=== PATIENT | female | born 1975 | race Caucasian/White ===

== ENCOUNTER 2017-09-14 19:24 | Emergency (ER) | payer OTHER | END 2017-09-14 21:29 | disposition home or self-care (01) | LOC: M ED 19:24 | DX: M54.5 Low back pain (principal); W01.0XXA Fall on same level from slipping, tripping and stumbling without subsequent striking against object, initial encounter; Y92.9 Unspecified place or not applicable; Y93.9 Activity, unspecified; Y99.0 Civilian activity done for income or pay; M51.37 Other intervertebral disc degeneration, lumbosacral region; Z91.018 Allergy to other foods; Z91.040 Latex allergy status; Z88.0 Allergy status to penicillin | CPT/HCPCS: 72131 ==

== ENCOUNTER 2017-11-26 07:39 | Emergency (ER) | payer OTHER ==
[2017-11-26] MEDS: CLINDAMYCIN 150 MG CAP PO (08:28)
== END 2017-11-26 08:28 | disposition home or self-care (01) ==
LOC: M ED 07:39
DX: H01.001 Unspecified blepharitis right upper eyelid (principal); Z88.0 Allergy status to penicillin; Z91.040 Latex allergy status; Z91.018 Allergy to other foods
CPT/HCPCS: 99282

== ENCOUNTER → 2018-04-23 | Outpatient (CLI) | payer OTHER | LOC: M WUC 10:30 | DX: S83.422A Sprain of lateral collateral ligament of left knee, initial encounter (principal); W18.30XA Fall on same level, unspecified, initial encounter; Y92.009 Unspecified place in unspecified non-institutional (private) residence as the place of occurrence of the external cause ==

== ENCOUNTER → 2019-09-08 | Outpatient (REF) | payer OTHER ==
[~2019-09-08] MED LIST: CLEO300C2 PO; CYCL10TA PO; IBUP-1022 PO
== END ==
LOC: M LAB REF 10:21
PROVIDERS: ATTEND Physician Assistant
DX: J02.9 Acute pharyngitis, unspecified (principal); M54.5 Low back pain

== ENCOUNTER 2021-05-10 23:58 | Emergency (ER) | payer OTHER ==
[~2021-05-10] VITALS: Ht 170.2 cm; Wt 109.3 kg
[~2021-05-10 23:58] MED LIST changes: +CYCL-707 PO; -CYCL10TA PO
[2021-05-11] VITALS: BP 150/91
[2021-05-11] MEDS ORDERED: DETR4CAP PO (00:51)
== END 2021-05-11 01:52 | disposition left against medical advice (07) ==
LOC: M ED 23:58
DX: Z53.21 Procedure and treatment not carried out due to patient leaving prior to being seen by health care provider (principal)

== ENCOUNTER → 2021-09-21 | Outpatient (REF) | payer OTHER ==
[~2021-09-21] MED LIST changes: +DETR4CAP PO
== END ==
LOC: M SFHCPLAZ 15:52
PROVIDERS: ATTEND Family Medicine
DX: Z53.9 Procedure and treatment not carried out, unspecified reason (principal); Z76.89 Persons encountering health services in other specified circumstances

== ENCOUNTER → 2021-09-22 | Outpatient (CLI) | payer OTHER ==
[2021-09-22 11:20] LABS: BASO % 0.6 % (0.0-1.0); EOS # 0.3 10^3/uL (0.0-0.5); EOS % 3.5 % (0.0-3.0); HEMATOCRIT 40.8 % (36.0-47.0); HEMOGLOBIN 13.9 g/dl (12.0-15.5); LYMPH # 2.2 10^3/uL (1.5-5.0); LYMPH % 31.5 % (24.0-44.0); MEAN CORPUSCULAR HEMOGLOBIN 30.1 pg (27.0-33.0); MEAN CORPUSCULAR HGB CONC 34.1 g/dl (32.0-36.5); MEAN CORPUSCULAR VOLUME 88.3 fl (80.0-96.0); MONO # 0.6 10^3/uL (0.0-0.8); MONO % 8.3 % (2.0-8.0); NEUTROPHILS # 3.9 10^3/uL (1.5-8.5); NEUTROPHILS % 55.1 % (36.0-66.0); PLATELET COUNT, AUTOMATED 308 10^3/uL (150-450); RED BLOOD COUNT 4.62 10^6/uL (4.00-5.40); WHITE BLOOD COUNT 7.1 10^3/uL (4.0-10.0)
[2021-09-22 11:43] LABS: HEMOGLOBIN A1c 5.1 %
[2021-09-22 11:54] LABS: BLOOD UREA NITROGEN 15 MG/DL (7-18); CALCIUM LEVEL 8.8 MG/DL (8.5-10.1); CARBON DIOXIDE LEVEL 27 MEQ/L (21-32); CHLORIDE LEVEL 105 MEQ/L (98-107); CHOLESTEROL LEVEL 245 MG/DL (<200); CHOLESTEROL RISK RATIO 3.769 (<5); CREATININE FOR GFR 0.79 MG/DL (0.55-1.30); FREE T4 0.83 NG/DL (0.76-1.46); GLOMERULAR FILTRATION RATE > 60.0 (>58); GLUCOSE, FASTING 107 MG/DL (70-100); HDL CHOLESTEROL 65 MG/DL (>40); LDL CHOLESTEROL 156 MG/DL (<100); NON-HDL-C 180 MG/DL; SODIUM LEVEL 139 MEQ/L (136-145); TRIGLYCERIDES LEVEL 121 MG/DL (<150)
== END ==
LOC: M PLALAB 07:39
PROVIDERS: ATTEND Student in an Organized Health Care Education/Training Program
DX: Z76.89 Persons encountering health services in other specified circumstances (principal)

== ENCOUNTER → 2021-11-19 | Outpatient (CLI) | payer OTHER | LOC: M WHC 11:03 | PROVIDERS: ATTEND Student in an Organized Health Care Education/Training Program | DX: Z12.31 Encounter for screening mammogram for malignant neoplasm of breast (principal) ==

== ENCOUNTER → 2022-03-07 | Outpatient (CLI) | payer OTHER | LOC: M SLEEP 20:00 | PROVIDERS: ATTEND Nurse Practitioner Family | DX: R06.83 Snoring (principal) ==

== ENCOUNTER → 2022-03-19 | Outpatient (REF) | payer OTHER | LOC: M SFHCPLAZ 08:57 | PROVIDERS: ATTEND Family Medicine | DX: Z53.9 Procedure and treatment not carried out, unspecified reason (principal) ==

== ENCOUNTER → 2022-03-19 | Outpatient (CLI) | payer OTHER ==
[2022-03-19 11:18] LABS: FREE T4 0.87 NG/DL (0.76-1.46); THYROID STIMULATING HORMONE 1.3 uIU/ML (0.358-3.740)
== END ==
LOC: M PLALAB 09:03
PROVIDERS: ATTEND Student in an Organized Health Care Education/Training Program
DX: E07.9 Disorder of thyroid, unspecified (principal)

== ENCOUNTER → 2022-05-13 | Outpatient (CLI) | payer OTHER | LOC: M PLALAB 07:28 | PROVIDERS: ATTEND Student in an Organized Health Care Education/Training Program | DX: R07.89 Other chest pain (principal) ==

== ENCOUNTER → 2022-06-15 | Outpatient (CLI) | payer OTHER | LOC: M CARPUL 09:37 | PROVIDERS: ATTEND Student in an Organized Health Care Education/Training Program | DX: R07.89 Other chest pain (principal) ==

== ENCOUNTER → 2022-07-15 | Outpatient (CLI) | payer OTHER ==
[2022-07-15 20:42] LABS: THYROID STIMULATING HORMONE 1.56 uIU/ML (0.358-3.740)
== END ==
LOC: M PLALAB 14:52
PROVIDERS: ATTEND Student in an Organized Health Care Education/Training Program
DX: Z13.29 Encounter for screening for other suspected endocrine disorder (principal)
CPT/HCPCS: 36415; 84439; 84443; G0463

== ENCOUNTER → 2022-08-26 | Outpatient (CLI) | payer OTHER ==
[2022-08-26 11:47] LABS: BASO % 0.1 % (0.0-1.0); EOS # 0.2 10^3/uL (0.0-0.5); EOS % 2.3 % (0.0-3.0); HEMATOCRIT 41.7 % (36.0-47.0); HEMOGLOBIN 13.6 g/dl (12.0-15.5); LYMPH % 29.4 % (24.0-44.0); MEAN CORPUSCULAR HEMOGLOBIN 29.2 pg (27.0-33.0); MEAN CORPUSCULAR HGB CONC 32.6 g/dl (32.0-36.5); MEAN CORPUSCULAR VOLUME 89.7 fl (80.0-96.0); MONO # 0.5 10^3/uL (0.0-0.8); MONO % 7.1 % (2.0-8.0); NEUTROPHILS # 4.1 10^3/uL (1.5-8.5); NEUTROPHILS % 60.4 % (36.0-66.0); PLATELET COUNT, AUTOMATED 303 10^3/uL (150-450); RED BLOOD COUNT 4.65 10^6/uL (4.00-5.40); WHITE BLOOD COUNT 6.9 10^3/uL (4.0-10.0)
[2022-08-26 11:52] LABS: FERRITIN 108.9 NG/ML (7.3-270.7)
[2022-08-26 11:53] LABS: PERCENT SATURATION 16.8 % (13.2-45.0)
== END ==
LOC: M PLALAB 07:43
PROVIDERS: ATTEND Student in an Organized Health Care Education/Training Program
DX: R53.83 Other fatigue (principal)

== ENCOUNTER 2022-09-15 16:47 | Emergency (ER) | payer OTHER ==
[~2022-09-15] VITALS: Ht 170.2 cm; Wt 115.9 kg
[2022-09-15 16:48] VITALS: BP 144/88
[2022-09-15] MEDS ORDERED: OMEP-173 (16:57)
== END 2022-09-15 20:25 | disposition left against medical advice (07) ==
LOC: M ED 16:47
DX: Z53.21 Procedure and treatment not carried out due to patient leaving prior to being seen by health care provider (principal)

== ENCOUNTER 2022-11-01 09:00 | Inpatient (IN) | payer OTHER ==
[~2022-11-01] VITALS: Ht 170.2 cm; Wt 112.5 kg
[~2022-11-01 09:00] MED LIST changes: +OMEP-173 PO
[2022-11-01] MEDS ORDERED: ACET1TAB55 PO (09:09)
[2022-11-01 09:51] LABS: BASO % 0.3 % (0.0-1.0); EOS # 0.1 10^3/uL (0.0-0.5); EOS % 0.6 % (0.0-3.0); HEMATOCRIT 44.9 % (36.0-47.0); LYMPH # 1.5 10^3/uL (1.5-5.0); LYMPH % 12.2 % (24.0-44.0); MEAN CORPUSCULAR HEMOGLOBIN 29.4 pg (27.0-33.0); MEAN CORPUSCULAR HGB CONC 33.4 g/dl (32.0-36.5); MONO # 0.7 10^3/uL (0.0-0.8); MONO % 5.6 % (2.0-8.0); NEUTROPHILS # 9.6 10^3/uL (1.5-8.5); NEUTROPHILS % 80.8 % (36.0-66.0); PLATELET COUNT, AUTOMATED 317 10^3/uL (150-450); WHITE BLOOD COUNT 11.8 10^3/uL (4.0-10.0)
[2022-11-01 10:17] LABS: AMYLASE 49 U/L (30-118)
[2022-11-01 10:21] LABS: ALBUMIN 4.1 G/DL (3.2-5.2); ALKALINE PHOSPHATASE 66 U/L (46-116); ALT/SGPT 23 U/L (7.0-40); AST/SGOT 27 U/L (<34); BILIRUBIN,DIRECT 0.2 MG/DL (<0.4); BILIRUBIN,TOTAL 0.8 MG/DL (0.3-1.2); BLOOD UREA NITROGEN 15 MG/DL (9-23); CARBON DIOXIDE LEVEL 29 MMOL/L (20-31); CHLORIDE LEVEL 100 MMOL/L (98-107); CREATININE FOR GFR 0.78 MG/DL (0.55-1.30); GLOMERULAR FILTRATION RATE > 60.0 (>58); GLUCOSE, FASTING 105 MG/DL (60-100); SODIUM LEVEL 136 MMOL/L (136-145); TOTAL PROTEIN 7.4 G/DL (5.7-8.2)
[2022-11-01 10:58] LABS: LIPASE 28 U/L (12-53)
[2022-11-01] MEDS ORDERED: KETOROLAC 30 MG/ML 1ML VIAL IV ONE (11:10)
[2022-11-01] MEDS ORDERED: fentaNYL 100 MCG/2 ML INJECTION IV PRN (11:10)
[2022-11-01] MEDS ORDERED: NS 1,000 ML IV ONE (11:15)
[2022-11-01] MEDS ORDERED: ISOVUE-370 76% 100ML VIAL As Ordered ONE (11:17)
[2022-11-01] MEDS ORDERED: D 50CAP3 PO (12:39)
[2022-11-01] MEDS ORDERED: ACET500T15 PO (12:39)
[2022-11-01] MEDS ORDERED: ONDANSETRON 4MG TAB PO PRN (12:40)
[2022-11-01] MEDS ORDERED: MORPHINE 4 MG/ML 1ML VIAL IV PRN (12:40)
[2022-11-01] MEDS ORDERED: MORPHINE 2 MG/ML 1ML VIAL IV PRN ×2 (12:40)
[2022-11-01] MEDS ORDERED: HOME MED LIST COMPLETE! XX SCH (12:40)
[2022-11-01] MEDS: metroNIDAZOLE 500 MG in IV 1 EA IV SCH ×2 (14:22→21:48)
[2022-11-01 14:55] VITALS: BP 120/64
[2022-11-01] MEDS: CIPROFLOXACIN 400 MG in IV 1 EA IV SCH (15:33)
[2022-11-01] MEDS: NS 1,000 ML IV SCH (15:33)
[2022-11-01] MEDS: KETOROLAC 30 MG/ML 1ML VIAL IV SCH (18:11)
[2022-11-01 22:00] VITALS: BP 111/68
[2022-11-02] MEDS: KETOROLAC 30 MG/ML 1ML VIAL IV SCH ×3 (00:14→11:58)
[2022-11-02] MEDS: NS 1,000 ML IV SCH ×3 (01:45→11:57)
[2022-11-02 02:30] VITALS: BP 112/63
[2022-11-02] MEDS: CIPROFLOXACIN 400 MG in IV 1 EA IV SCH ×3 (03:00→15:48)
[2022-11-02] MEDS: metroNIDAZOLE 500 MG in IV 1 EA IV SCH ×2 (05:17→14:19)
[2022-11-02 05:42] VITALS: BP 111/62
[2022-11-02 08:32] LABS: HEMATOCRIT 35.6 % (36.0-47.0); MEAN CORPUSCULAR HEMOGLOBIN 30.3 pg (27.0-33.0); MEAN CORPUSCULAR HGB CONC 34.6 g/dl (32.0-36.5); MEAN CORPUSCULAR VOLUME 87.7 fl (80.0-96.0); PLATELET COUNT, AUTOMATED 231 10^3/uL (150-450); RED BLOOD COUNT 4.06 10^6/uL (4.00-5.40); WHITE BLOOD COUNT 7.2 10^3/uL (4.0-10.0)
[2022-11-02 08:56] LABS: HEMOGLOBIN 12.3 g/dl (12.0-15.5)
[2022-11-02] MEDS ORDERED: PANTOPRAZOLE 40MG VIAL IV SCH (09:00)
[2022-11-02 09:10] LABS: ALKALINE PHOSPHATASE 49 U/L (46-116); ALT/SGPT 16 U/L (7.0-40); AST/SGOT 27 U/L (<34); BLOOD UREA NITROGEN 10 MG/DL (9-23); CALCIUM LEVEL 8.3 MG/DL (8.5-10.1); CARBON DIOXIDE LEVEL 24 MMOL/L (20-31); CHLORIDE LEVEL 107 MMOL/L (98-107); CREATININE FOR GFR 0.79 MG/DL (0.55-1.30); GLOMERULAR FILTRATION RATE > 60.0 (>58); GLUCOSE, FASTING 96 MG/DL (60-100); POTASSIUM SERUM 3.8 MMOL/L (3.5-5.1); SODIUM LEVEL 139 MMOL/L (136-145); TOTAL PROTEIN 5.8 G/DL (5.7-8.2)
[2022-11-02 10:00] VITALS: BP 111/68
[2022-11-02 14:00] VITALS: BP 120/74
[2022-11-02] MEDS ORDERED: HYDR-3713 PO (15:13)
[2022-11-02] MEDS ORDERED: CIPR-249 PO (15:13)
[2022-11-02] MEDS ORDERED: NAPR-837 PO (15:13)
== END 2022-11-02 17:15 | disposition home or self-care (01) | DRG 446 ==
LOC: M ED 09:00 → M ED INP 12:36 → ENRESERV 13:52 → M MS5PR 14:35
PROVIDERS: ADMIT Surgery; ATTEND Surgery
DX: K80.20 Calculus of gallbladder without cholecystitis without obstruction (principal); K44.9 Diaphragmatic hernia without obstruction or gangrene; K76.0 Fatty (change of) liver, not elsewhere classified

== ENCOUNTER 2022-11-05 02:37 | Emergency (ER) | payer OTHER ==
[~2022-11-05] VITALS: Ht 170.2 cm; Wt 115.6 kg
[~2022-11-05 02:37] MED LIST changes: +ACET1TAB55 PO; +ACET500T15 PO; +CIPR-249 PO; +D 50CAP3 PO; +HYDR-3713 PO; +NAPR-837 PO
[2022-11-05 02:40] VITALS: BP 156/82
== END 2022-11-05 03:05 | disposition left against medical advice (07) ==
LOC: M ED 02:37
DX: Z53.21 Procedure and treatment not carried out due to patient leaving prior to being seen by health care provider (principal)

== ENCOUNTER → 2022-11-16 | Outpatient (CLI) | payer OTHER ==
[2022-11-16 17:12] LABS: BASO % 0.4 % (0.0-1.0); EOS # 0.3 10^3/uL (0.0-0.5); EOS % 2.8 % (0.0-3.0); HEMATOCRIT 41.8 % (36.0-47.0); HEMOGLOBIN 13.5 g/dl (12.0-15.5); LYMPH % 32.6 % (24.0-44.0); MEAN CORPUSCULAR HEMOGLOBIN 28.4 pg (27.0-33.0); MEAN CORPUSCULAR HGB CONC 32.3 g/dl (32.0-36.5); MONO # 0.6 10^3/uL (0.0-0.8); MONO % 6.2 % (2.0-8.0); NEUTROPHILS # 5.2 10^3/uL (1.5-8.5); PLATELET COUNT, AUTOMATED 486 10^3/uL (150-450); RED BLOOD COUNT 4.75 10^6/uL (4.00-5.40); WHITE BLOOD COUNT 9.1 10^3/uL (4.0-10.0)
[2022-11-16 17:16] LABS: ALBUMIN 3.6 G/DL (3.2-5.2); ALKALINE PHOSPHATASE 92 U/L (46-116); ALT/SGPT 18 U/L (7.0-40); AST/SGOT 13 U/L (<34); BILIRUBIN,TOTAL 0.5 MG/DL (0.3-1.2); BLOOD UREA NITROGEN 15 MG/DL (9-23); CALCIUM LEVEL 9.7 MG/DL (8.5-10.1); CARBON DIOXIDE LEVEL 28 MMOL/L (20-31); CHLORIDE LEVEL 104 MMOL/L (98-107); GLOMERULAR FILTRATION RATE > 60.0 (>58); GLUCOSE, FASTING 87 MG/DL (60-100); POTASSIUM SERUM 4.3 MMOL/L (3.5-5.1); SODIUM LEVEL 139 MMOL/L (136-145); TOTAL PROTEIN 7.3 G/DL (5.7-8.2)
== END ==
LOC: M PLALAB 15:24
PROVIDERS: ATTEND Surgery
DX: K80.20 Calculus of gallbladder without cholecystitis without obstruction (principal)
CPT/HCPCS: 36415; 80053; 85025; G0463

== ENCOUNTER → 2022-12-09 | Outpatient (CLI) | payer OTHER | LOC: M LABSMTC 10:46 | PROVIDERS: ATTEND Anesthesiology | DX: Z01.812 Encounter for preprocedural laboratory examination (principal) ==

== ENCOUNTER 2022-12-14 11:42 | Day surgery (SDC) | payer OTHER ==
[~2022-12-14] VITALS: Ht 170.2 cm; Wt 114.3 kg
[~2022-12-14 11:42] MED LIST changes: +KETOROLAC 60MG 2ML VIAL As Ordered ONE; +LIDOCAINE 2% 100MG/5ML SDV (FOR ANES.) As Ordered ONE; +ONDANSETRON 4MG 2ML VIAL As Ordered ONE; +ROCURONIUM BROMIDE 50MG/5ML VIAL As Ordered ONE; +SUGAMMADEX SODIUM 500 MG/5 ML VIAL (BRIDION) As Ordered ONE; +propofoL 200 MG/20 ML VIAL As Ordered ONE
[2022-12-14] MEDS ORDERED: MIDAZOLAM INJ 2MG/2ML VIAL As Ordered ONE (12:05)
[2022-12-14] MEDS ORDERED: fentaNYL 100 MCG/2 ML INJECTION As Ordered ONE ×2 (12:05→13:41)
[2022-12-14] MEDS ORDERED: LR 1,000 ML IV SCH ×2 (12:15→14:50)
[2022-12-14] MEDS ORDERED: ceFAZolin SOD 2 GM in IV 1 EA IV ONE (12:40)
[2022-12-14] MEDS ORDERED: BUPIVACAINE/EPIN 0.25% 30ML VIAL As Ordered ONE (12:50)
[2022-12-14] MEDS ORDERED: ACETAMINOPHEN 1000MG 100ML IV BAG As Ordered ONE (13:21)
[2022-12-14] MEDS ORDERED: ROCURONIUM BROMIDE 50MG/5ML VIAL As Ordered ONE (14:17)
[2022-12-14] MEDS ORDERED: HYDROMORPHONE HCL 0.5 MG/ 0.5 ML SYRINGE IV PRN (14:50)
[2022-12-14] MEDS ORDERED: ONDANSETRON 4MG 2ML VIAL IV PRN (14:50)
[2022-12-14] MEDS ORDERED: fentaNYL 100 MCG/2 ML INJECTION IV PRN (14:50)
[2022-12-14] MEDS ORDERED: oxyCODONE 5MG TAB PO PRN (14:50)
[2022-12-14] MEDS ORDERED: cefTRIAXone SOD 2 GM in D5W MINI-BAG PLUS 50 ML IV ONE (15:00)
[2022-12-14] MEDS ORDERED: NS 1,000 ML IV SCH (15:00)
[2022-12-14] MEDS ORDERED: traMADol 50 MG TAB PO PRN (15:00)
[2022-12-14 16:34] VITALS: BP 142/79
== END 2022-12-14 17:43 | disposition home or self-care (01) ==
LOC: M SDC 11:42
PROVIDERS: ATTEND Surgery
DX: K80.10 Calculus of gallbladder with chronic cholecystitis without obstruction (principal); K21.9 Gastro-esophageal reflux disease without esophagitis; K44.9 Diaphragmatic hernia without obstruction or gangrene; N32.81 Overactive bladder; Z79.899 Other long term (current) drug therapy; Z88.0 Allergy status to penicillin; Z91.018 Allergy to other foods; Z91.040 Latex allergy status; Z87.891 Personal history of nicotine dependence; G47.33 Obstructive sleep apnea (adult) (pediatric)
CPT/HCPCS: 47562; 88304; J0131; J0690; J0696; J1100; J1885; J2250; J2405; J3010; S0020

== ENCOUNTER → 2022-12-27 | Outpatient (CLI) | payer OTHER ==
[~2022-12-27] MED LIST changes: -KETOROLAC 60MG 2ML VIAL As Ordered ONE; -LIDOCAINE 2% 100MG/5ML SDV (FOR ANES.) As Ordered ONE; -ONDANSETRON 4MG 2ML VIAL As Ordered ONE; -ROCURONIUM BROMIDE 50MG/5ML VIAL As Ordered ONE; -SUGAMMADEX SODIUM 500 MG/5 ML VIAL (BRIDION) As Ordered ONE; -propofoL 200 MG/20 ML VIAL As Ordered ONE
== END ==
LOC: M WHC 16:23
PROVIDERS: ATTEND Student in an Organized Health Care Education/Training Program
DX: Z12.31 Encounter for screening mammogram for malignant neoplasm of breast (principal)

== ENCOUNTER → 2022-12-28 | Outpatient (CLI) | payer OTHER | LOC: M WHC 06:59 | PROVIDERS: ATTEND Student in an Organized Health Care Education/Training Program | DX: Z12.31 Encounter for screening mammogram for malignant neoplasm of breast (principal) ==

== ENCOUNTER 2023-01-28 08:05 | Day surgery (SDC) | payer OTHER ==
[~2023-01-28] VITALS: Ht 170.2 cm; Wt 114.3 kg
[~2023-01-28 08:05] MED LIST changes: +NS 1,000 ML IV ONE
[2023-01-28] MEDS ORDERED: propofoL 200 MG/20 ML VIAL As Ordered ONE ×2 (09:49→10:00)
[2023-01-28 10:25] VITALS: BP 115/64
== END 2023-01-28 10:31 | disposition home or self-care (01) ==
LOC: M OPP 08:05
PROVIDERS: ATTEND Internal Medicine Gastroenterology
DX: Z12.11 Encounter for screening for malignant neoplasm of colon (principal); K63.5 Polyp of colon; K64.4 Residual hemorrhoidal skin tags; K64.8 Other hemorrhoids; Z87.891 Personal history of nicotine dependence; Z79.890 Hormone replacement therapy; Z88.0 Allergy status to penicillin; Z91.018 Allergy to other foods; Z91.040 Latex allergy status

== ENCOUNTER → 2023-04-14 | Outpatient (CLI) | payer OTHER ==
[~2023-04-14] MED LIST changes: -NS 1,000 ML IV ONE
[2023-04-14 13:17] LABS: BASO % 0.4 % (0.0-1.0); EOS # 0.2 10^3/uL (0.0-0.5); EOS % 2.5 % (0.0-3.0); HEMATOCRIT 39.7 % (36.0-47.0); LYMPH % 26.5 % (24.0-44.0); MEAN CORPUSCULAR HEMOGLOBIN 28.4 pg (27.0-33.0); MEAN CORPUSCULAR HGB CONC 32.7 g/dl (32.0-36.5); MEAN CORPUSCULAR VOLUME 86.9 fl (80.0-96.0); MONO # 0.6 10^3/uL (0.0-0.8); MONO % 7.6 % (2.0-8.0); NEUTROPHILS # 4.7 10^3/uL (1.5-8.5); NEUTROPHILS % 62.6 % (36.0-66.0); PLATELET COUNT, AUTOMATED 413 10^3/uL (150-450); RED BLOOD COUNT 4.57 10^6/uL (4.00-5.40); WHITE BLOOD COUNT 7.5 10^3/uL (4.0-10.0)
[2023-04-14 13:37] LABS: ERYTHROCYTE SEDIMENTATION RATE 75 mm/hr (0-30)
[2023-04-14 13:49] LABS: BLOOD UREA NITROGEN 14 MG/DL (9-23); CALCIUM LEVEL 9.5 MG/DL (8.5-10.1); CARBON DIOXIDE LEVEL 29 MMOL/L (20-31); CHLORIDE LEVEL 103 MMOL/L (98-107); CREATININE FOR GFR 0.72 MG/DL (0.55-1.30); FREE T4 2.02 NG/DL (0.89-1.76); GLOMERULAR FILTRATION RATE > 60.0 (>51); GLUCOSE, FASTING 87 MG/DL (60-100); POTASSIUM SERUM 4.6 MMOL/L (3.5-5.1); SODIUM LEVEL 140 MMOL/L (136-145); THYROID STIMULATING HORMONE 0.021 uIU/ML (0.55-4.78)
[2023-04-14 13:51] LABS: THYROID PEROXIDASE ANTIBODY < 28.0 U/ML (<60.0)
[2023-04-14 14:58] LABS: ALBUMIN 3.5 G/DL (3.2-5.2)
== END ==
LOC: M PLALAB 11:48
PROVIDERS: ATTEND Student in an Organized Health Care Education/Training Program
DX: E04.9 Nontoxic goiter, unspecified (principal); M54.2 Cervicalgia

== ENCOUNTER → 2023-04-15 | Outpatient (CLI) | payer OTHER | LOC: M PLAIMG 07:09 | PROVIDERS: ATTEND Student in an Organized Health Care Education/Training Program | DX: M54.2 Cervicalgia (principal) ==

== ENCOUNTER → 2023-04-28 | Outpatient (REF) | payer OTHER | LOC: M SFHCPLAZ 16:46 | PROVIDERS: ATTEND Internal Medicine Hematology | DX: Z53.9 Procedure and treatment not carried out, unspecified reason (principal) ==

== ENCOUNTER → 2023-05-12 | Outpatient (CLI) | payer OTHER ==
[2023-05-12 10:51] LABS: FREE T4 1.08 NG/DL (0.89-1.76); THYROID STIMULATING HORMONE 0.046 uIU/ML (0.55-4.78)
== END ==
LOC: M PLALAB 07:22
PROVIDERS: ATTEND Student in an Organized Health Care Education/Training Program
DX: E06.1 Subacute thyroiditis (principal)

== ENCOUNTER → 2023-05-18 | Outpatient (CLI) | payer OTHER | LOC: M RAD 12:48 | PROVIDERS: ATTEND Student in an Organized Health Care Education/Training Program | DX: E21.3 Hyperparathyroidism, unspecified (principal); E07.89 Other specified disorders of thyroid | CPT/HCPCS: 78012; A9516 ==

== ENCOUNTER → 2023-06-29 | Outpatient (CLI) | payer OTHER ==
[2023-06-29 12:27] LABS: FREE T4 1.08 NG/DL (0.89-1.76); THYROID STIMULATING HORMONE 4.957 uIU/ML (0.55-4.78)
== END ==
LOC: M PLALAB 07:44
PROVIDERS: ATTEND Student in an Organized Health Care Education/Training Program
DX: E06.1 Subacute thyroiditis (principal)

== ENCOUNTER → 2023-08-26 | Outpatient (CLI) | payer OTHER ==
[2023-08-26 12:12] LABS: THYROID STIMULATING HORMONE 3.317 uIU/ML (0.55-4.78)
[2023-08-26 12:13] LABS: FREE T4 1.05 NG/DL (0.89-1.76); THYROID PEROXIDASE ANTIBODY < 28.0 U/ML (<60.0)
[2023-08-26 12:18] LABS: THYROGLOBULIN ANTIBODY < 15.0 U/ML (<60.0)
== END ==
LOC: M PLALAB 07:27
PROVIDERS: ATTEND Nurse Practitioner Family
DX: E06.1 Subacute thyroiditis (principal)

== ENCOUNTER → 2024-01-24 | Outpatient (CLI) | payer OTHER ==
[2024-01-24 10:29] LABS: BASO % 0.4 % (0.0-1.0); EOS # 0.2 10^3/uL (0.0-0.5); EOS % 2.3 % (0.0-3.0); HEMATOCRIT 40.7 % (36.0-47.0); HEMOGLOBIN 13.7 g/dl (12.0-15.5); LYMPH % 29.8 % (24.0-44.0); MEAN CORPUSCULAR HEMOGLOBIN 29.3 pg (27.0-33.0); MEAN CORPUSCULAR HGB CONC 33.7 g/dl (32.0-36.5); MEAN CORPUSCULAR VOLUME 87.2 fl (80.0-96.0); MONO # 0.6 10^3/uL (0.0-0.8); MONO % 9.1 % (2.0-8.0); NEUTROPHILS % 57.8 % (36.0-66.0); PLATELET COUNT, AUTOMATED 323 10^3/uL (150-450); RED BLOOD COUNT 4.67 10^6/uL (4.00-5.40); WHITE BLOOD COUNT 6.8 10^3/uL (4.0-10.0)
[2024-01-24 10:31] LABS: ALBUMIN 3.7 G/DL (3.2-5.2); ALKALINE PHOSPHATASE 62 U/L (46-116); ALT/SGPT 26 U/L (7.0-40); AST/SGOT 20 U/L (<34); BILIRUBIN,TOTAL 0.8 MG/DL (0.3-1.2); BLOOD UREA NITROGEN 13 MG/DL (9-23); CALCIUM LEVEL 8.8 MG/DL (8.5-10.1); CARBON DIOXIDE LEVEL 28 MMOL/L (20-31); CHLORIDE LEVEL 104 MMOL/L (98-107); CHOLESTEROL LEVEL 202 MG/DL (<200); CHOLESTEROL RISK RATIO 4.28 (<5); CREATININE FOR GFR 0.84 MG/DL (0.55-1.30); GLOMERULAR FILTRATION RATE > 60.0 (>51); GLUCOSE, FASTING 94 MG/DL (60-100); HDL CHOLESTEROL 47.1 MG/DL (>40); LDL CHOLESTEROL 115.7 MG/DL (<100); NON-HDL-C 154.9 MG/DL; POTASSIUM SERUM 3.9 MMOL/L (3.5-5.1); SODIUM LEVEL 138 MMOL/L (136-145); TOTAL PROTEIN 6.6 G/DL (5.7-8.2); TRIGLYCERIDES LEVEL 196 MG/DL (<150)
[2024-01-24 10:35] LABS: T UPTAKE 42.4 % (22.5-37.0); THYROID STIMULATING HORMONE 4.029 uIU/ML (0.55-4.78)
[2024-01-24 10:36] LABS: THYROID PEROXIDASE ANTIBODY < 28.0 U/ML (<60.0); TOTAL 25(OH) VITAMIN D 40.7 NG/ML (20.0-100.0)
[2024-01-24 10:37] LABS: FREE T4 1.06 NG/DL (0.89-1.76)
[2024-01-24 11:00] LABS: THYROGLOBULIN ANTIBODY < 15.0 U/ML (<60.0)
[2024-01-24 11:32] LABS: HEMOGLOBIN A1c 4.9 % (4.0-6.0)
== END ==
LOC: M PLALAB 07:30
PROVIDERS: ATTEND Student in an Organized Health Care Education/Training Program
DX: Z00.00 Encounter for general adult medical examination without abnormal findings (principal); E06.1 Subacute thyroiditis; Z13.220 Encounter for screening for lipoid disorders; Z13.1 Encounter for screening for diabetes mellitus; E55.9 Vitamin D deficiency, unspecified

== ENCOUNTER → 2024-04-16 | Outpatient (CLI) | payer OTHER ==
[2024-04-16 20:14] LABS: THYROID STIMULATING HORMONE 1.962 uIU/ML (0.55-4.78)
[2024-04-16 20:17] LABS: FREE T4 1.03 NG/DL (0.89-1.76)
[2024-04-16 20:18] LABS: FOLATE 14.23 NG/ML (>5.4)
== END ==
LOC: M PLALAB 15:54
PROVIDERS: ATTEND Student in an Organized Health Care Education/Training Program
DX: G62.9 Polyneuropathy, unspecified (principal); E06.1 Subacute thyroiditis; R79.0 Abnormal level of blood mineral

== ENCOUNTER → 2024-08-20 | Outpatient (CLI) | payer OTHER | LOC: M CARPUL 13:35 | PROVIDERS: ATTEND Student in an Organized Health Care Education/Training Program | DX: I77.810 Thoracic aortic ectasia (principal) ==

== ENCOUNTER → 2025-04-24 | Outpatient (REF) | payer OTHER | LOC: M SFHCPLAZ 09:33 | PROVIDERS: ATTEND Student in an Organized Health Care Education/Training Program | DX: I10 Essential (primary) hypertension (principal); E66.01 Morbid (severe) obesity due to excess calories ==

== ENCOUNTER → 2025-05-15 | Outpatient (CLI) | payer OTHER ==
[~2025-05-15] MED LIST changes: -IBUP-1022 PO; +IBUP600T42 PO
[2025-05-15 11:34] LABS: ALT/SGPT 24.0 U/L (7.0-40); AST/SGOT 20.0 U/L (<34); CALCIUM LEVEL 9.4 MG/DL (8.5-10.1); CARBON DIOXIDE LEVEL 26.0 MMOL/L (20-31); CHLORIDE LEVEL 104.0 MMOL/L (98-107); CREATININE FOR GFR 0.81 MG/DL (0.55-1.30); GLOMERULAR FILTRATION RATE 87.3 (>51); POTASSIUM SERUM 4.2 MMOL/L (3.5-5.1); SODIUM LEVEL 140.0 MMOL/L (136-145)
[2025-05-15 11:35] LABS: ESTIMATED AVERAGE GLUCOSE 108.0 MG/DL (60-110)
== END ==
LOC: M PLALAB 07:50
DX: I10 Essential (primary) hypertension (principal); E66.01 Morbid (severe) obesity due to excess calories

== ENCOUNTER → 2025-08-20 | Outpatient (CLI) | payer OTHER | LOC: M WHC 09:46 | PROVIDERS: ATTEND Family Medicine | DX: Z00.00 Encounter for general adult medical examination without abnormal findings (principal); Z53.9 Procedure and treatment not carried out, unspecified reason ==